=== PATIENT | male | born 1980 | race Caucasian/White ===

== ENCOUNTER 2021-01-02 21:51 | Emergency (ER) | payer SELFPAY ==
[~2021-01-02] VITALS: Ht 175.3 cm; Wt 90.9 kg
[2021-01-02 21:54] VITALS: BP 167/129; TEMP 97.3
[2021-01-02] MEDS ORDERED: TYLENOL 325MG325 MG PO (22:10)
[2021-01-02] MEDS ORDERED: MOTRIN 400400 MG/TAB PO (22:25)
[2021-01-02] MEDS ORDERED: ROXICODONE 55 MG/TAB PO (22:25)
[2021-01-02] MEDS ORDERED: AMOXICILLIN 8751 TAB PO (22:26)
[2021-01-02 22:41] VITALS: PULSE 87
== END 2021-01-02 22:43 | disposition home or self-care (01) ==
LOC: COL.ER 21:51
DX: K08.89 Other specified disorders of teeth and supporting structures (principal)
CPT/HCPCS: J1885

== ENCOUNTER → 2024-06-11 | Outpatient (CLI) | payer BC ==
[~2024-06-11] MED LIST: AMOXICILLIN 8751 TAB PO; MOTRIN 400400 MG/TAB PO; ROXICODONE 55 MG/TAB PO; TYLENOL 325MG325 MG PO
== END ==
LOC: MHCPAIN 15:07
DX: M54.16 Radiculopathy, lumbar region (principal); M47.896 Other spondylosis, lumbar region; M51.36 Other intervertebral disc degeneration, lumbar region; M99.59 Intervertebral disc stenosis of neural canal of abdomen and other regions
CPT/HCPCS: G0463

== ENCOUNTER → 2024-07-11 | Outpatient (CLI) | payer BC ==
[~2024-07-11] MED LIST changes: +Iohexol 300 - 10 ML VIAL ONE; +Lidocaine PF 2% (20 MG/ML) 2 ML VIAL ONE
== END ==
LOC: MHCPAIN 12:17
DX: M54.16 Radiculopathy, lumbar region (principal); M54.50 Low back pain, unspecified
CPT/HCPCS: J1100; Q9967